=== PATIENT | male | born 1940 | race Caucasian/White ===

== ENCOUNTER 2016-03-31 08:00 | Outpatient (CLI) | payer MEDICARE, OTHER | END 2016-03-31 08:01 | disposition home or self-care (01) | DX: E78.2 Mixed hyperlipidemia (principal); Z79.899 Other long term (current) drug therapy; I10 Essential (primary) hypertension ==

== ENCOUNTER 2016-11-25 08:51 | Outpatient (CLI) | payer MEDICARE, OTHER ==
[2016-11-25 18:28] LABS: BASOPHILS % (AUTO) 0.5 %; EOSINOPHILS # (AUTO) 0.4 10^3/uL (0.0-0.7); EOSINOPHILS % (AUTO) 5.4 %; HCT - HEMATOCRIT 43.6 % (42.0-52.0); HGB - HEMOGLOBIN 14.5 g/dL (14.0-18.0); IMMATURE RETIC FRACTION 0.35; LYMPHOCYTES # (AUTO) 2.4 10^3/uL (1.5-3.5); LYMPHOCYTES % (AUTO) 29.8 %; MEAN CORPUSCULAR HEMOGLOBIN 34.8 pg (27.0-31.0); MEAN CORPUSCULAR HGB CONC 33.4 g/dL (32.0-36.0); MEAN CORPUSCULAR VOLUME 104.1 fL (80.0-94.0); MEAN PLATELET VOLUME 9.5 fL (7.4-11.4); MONOCYTES # (AUTO) 1.1 10^3/uL (0.0-1.0); MONOCYTES % (AUTO) 13.4 %; NEUTROPHILS # (AUTO) 4.1 10^3/uL (1.5-6.6); NEUTROPHILS % (AUTO) 50.9 %; NUCLEATED RED BLOOD CELLS AUTO 0.3 /100WBC; RED BLOOD COUNT 4.18 10^6/uL (4.70-6.10); RED CELL DISTRIBUTION WIDTH 15.1 % (12.0-15.0)
[2016-11-25 18:41] LABS: FERRITIN 199.9 ng/mL (23.9-336.2)
== END 2016-11-25 08:52 | disposition home or self-care (01) ==
LOC: LAB.F 08:51
PROVIDERS: ATTEND Internal Medicine
DX: D64.9 Anemia, unspecified (principal)
CPT/HCPCS: 36415; 82607; 82728; 83010; 85025; 85044; 86880

== ENCOUNTER 2017-06-19 17:17 | Outpatient (CLI) | payer MEDICARE, OTHER ==
[2017-06-19 17:35] LABS: BASOPHILS # (AUTO) 0.1 10^3/uL (0.0-0.1); BASOPHILS % (AUTO) 0.6 %; EOSINOPHILS # (AUTO) 0.3 10^3/uL (0.0-0.7); EOSINOPHILS % (AUTO) 3.3 %; HGB - HEMOGLOBIN 13.1 g/dL (14.0-18.0); LYMPHOCYTES # (AUTO) 1.6 10^3/uL (1.5-3.5); LYMPHOCYTES % (AUTO) 16.4 %; MEAN CORPUSCULAR HEMOGLOBIN 34.3 pg (27.0-31.0); MEAN CORPUSCULAR HGB CONC 33.3 g/dL (32.0-36.0); MEAN PLATELET VOLUME 8.8 fL (7.4-11.4); MONOCYTES # (AUTO) 1.8 10^3/uL (0.0-1.0); MONOCYTES % (AUTO) 18.1 %; NEUTROPHILS # (AUTO) 6.2 10^3/uL (1.5-6.6); NEUTROPHILS % (AUTO) 61.6 %; PLT - PLATELET COUNT 196 10^3/uL (130-450); RED BLOOD COUNT 3.83 10^6/uL (4.70-6.10); RED CELL DISTRIBUTION WIDTH 15.2 % (12.0-15.0); WHITE BLOOD COUNT 10.1 x10^3/uL (4.8-10.8)
[2017-06-19 17:52] LABS: ALBUMIN/GLOBULIN RATIO 1.1 (1.0-2.2); BILIRUBIN,TOTAL 0.3 mg/dL (0.2-1.0); CALCIUM 9.1 mg/dL (8.5-10.3); CREATININE 1.2 mg/dL (0.6-1.2); CRP - C-REACTIVE PROTEIN 4.3 mg/dL (0-1.0); TOTAL PROTEIN 7.8 g/dL (6.7-8.2)
[2017-06-19] MEDS ORDERED: IOPAMIDOL-300 100 ML VIAL ONE (17:52)
[2017-06-19] MEDS ORDERED: IOPAMIDOL-300 100 ML VIAL IVP ONE (19:54)
--- NOTE | 2017-06-19 20:29 | CT Report ---
EXAM: CT ABDOMEN AND PELVIS WITHOUT AND WITH CONTRAST (CT IVP) EXAM DATE: 06/19/2017 06:57 PM. CLINICAL HISTORY: Flank pain and anemia. History of bladder cancer COMPARISONS: None available at time of dictation. TECHNIQUE: Routine helical imaging was performed through the kidneys, ureters and bladder in the prec ontrast, postcontrast and delayed phase. IV Contrast: 100 cc Isovue-300 IV. Reconstructions: Coronal and sagittal. In accordance with CT protocol optimization, one or more of the following dose reduction techniques w ere utilized for this exam: automated exposure control, adjustment of mA and/or KV based on patient s ize, or use of iterative reconstructive technique. FINDINGS: Lung Bases: There is moderately advanced reticulation, groundglass opacity and traction bronchiectasi s consistent with pulmonary fibrosis. Right Kidney/Ureter: There are small right parapelvic renal cysts. The proximal and mid right ureter is well opacified with contrast in the excretory phase no filling defect or mass. No obstruction. Left Kidney/Ureter: There is wocj-xt-[id number] hydronephrosis of the left kidney with hydroureter. The left ureter is dilated down to the level of the urinary bladder. No left renal mass. No renal calcul us. On [address] of the bladder, the distal left ureter is dilated and contrast-omar led, however that very distal left ureter is unopacified with contrast and has a somewhat rounded sha pe which is best demonstrated on the coronal and sagittal reconstructions series 12 image 34. The omar ling defect in the distal left ureter measures 21 x 11 x 11 mm and is noncalcified. Prior to contrast the density is 27 Hounsfield units and after contrast density average is 34 Hounsfield units, not de finitely enhancing. Other Solid Organs: The liver, spleen, pancreas, gallbladder, and adrenal glands are unremarkable.The gallbladder is contracted. Peritoneal Cavity/Bowel: The appendix appears normal. The bowel is normal in caliber. There are a mod erate number of scattered colonic diverticula. Pelvic Organs: There is a small fat-containing left inguinal hernia. Prostate measures 3.9 x 5.9 x 4. 9 cm. Vasculature: There is moderately advanced diffuse atherosclerotic vascular calcification. There is a 4.1 cm distal abdominal aortic aneurysm tapering above the bifurcation. Bones: Normal. Other: None. IMPRESSION: 1. Distal left ureteral ovoid filling defect causing distal left ureteral obstruction. Measuring 21 x 11 x 11 mm and differential would include clot or a hypoenhancing mass. 2. Xrlm-va-kdrifmdh left hydronephrosis. 3. 4.1 cm to the lung abdominal aortic aneurysm. 4. Chronic bibasilar pulmonary fibrosis. RADIA The call report notification system was initiated by Dr. Apolinar Yanes at 20:07 hrs on 8. The above findings were discussed with SUN Cortes by Dr. Apolinar Yanes at 20:27 hrs on 06/19/17. Referring Provider Line: [phone] SITE ID: [id number]
== END 2017-06-19 17:18 | disposition home or self-care (01) ==
LOC: LAB 17:17 → DI 17:18
PROVIDERS: ATTEND Physician Assistant Medical
DX: N13.1 Hydronephrosis with ureteral stricture, not elsewhere classified (principal); I71.4 Abdominal aortic aneurysm, without rupture; D64.9 Anemia, unspecified; Z85.51 Personal history of malignant neoplasm of bladder; R31.9 Hematuria, unspecified
CPT/HCPCS: 36415; 74178; 80053; 85025; 85651; 86140; 87086; Q9967

== ENCOUNTER 2017-07-12 07:08 | Outpatient (CLI) | payer MEDICARE, OTHER ==
[2017-07-12 11:56] LABS: BASOPHILS # (AUTO) 0.1 10^3/uL (0.0-0.1); BASOPHILS % (AUTO) 0.8 %; EOSINOPHILS # (AUTO) 0.7 10^3/uL (0.0-0.7); EOSINOPHILS % (AUTO) 7.5 %; LYMPHOCYTES # (AUTO) 2.5 10^3/uL (1.5-3.5); LYMPHOCYTES % (AUTO) 28.3 %; MEAN CORPUSCULAR HEMOGLOBIN 34.2 pg (27.0-31.0); MEAN CORPUSCULAR HGB CONC 33.3 g/dL (32.0-36.0); MEAN CORPUSCULAR VOLUME 102.7 fL (80.0-94.0); MEAN PLATELET VOLUME 9.6 fL (7.4-11.4); MONOCYTES # (AUTO) 1.2 10^3/uL (0.0-1.0); MONOCYTES % (AUTO) 13.5 %; NEUTROPHILS # (AUTO) 4.4 10^3/uL (1.5-6.6); NEUTROPHILS % (AUTO) 49.9 %; PLT - PLATELET COUNT 227 10^3/uL (130-450); RED BLOOD COUNT 3.81 10^6/uL (4.70-6.10); RED CELL DISTRIBUTION WIDTH 14.5 % (12.0-15.0); WHITE BLOOD COUNT 8.9 x10^3/uL (4.8-10.8)
[2017-07-12 12:14] LABS: ALBUMIN/GLOBULIN RATIO 1.3 (1.0-2.2); ALKALINE PHOSPHATASE 58 IU/L (42-121); ALT ALANINE AMINOTRANSFERASE 19 IU/L (10-60); AST ASPARTATE AMINOTRANSFERASE 20 IU/L (10-42); BILIRUBIN,TOTAL 0.8 mg/dL (0.2-1.0); BUN - BLOOD UREA NITROGEN 25 mg/dL (6-20); CALCIUM 9.3 mg/dL (8.5-10.3); CARBON DIOXIDE - CO2 29 mmol/L (21-32); CHLORIDE 102 mmol/L (101-111); CHOL/HDL RATIO 2.5 (<5.0); CHOLESTEROL 116 mg/dL; GFR - MDRD 73 (>89); GLUCOSE 98 mg/dL (70-100); HDL CHOLESTEROL 47 mg/dL; SODIUM 137 mmol/L (135-145); TOTAL PROTEIN 7.2 g/dL (6.7-8.2)
[2017-07-12 12:37] LABS: LDL CHOLESTEROL,DIRECT 54 mg/dL; LDLD/HDL RATIO 1.1 (<3.6)
== END 2017-07-12 07:09 | disposition home or self-care (01) ==
LOC: LAB.F 07:08
PROVIDERS: ATTEND Internal Medicine
DX: E78.5 Hyperlipidemia, unspecified (principal); Z79.899 Other long term (current) drug therapy; Z12.5 Encounter for screening for malignant neoplasm of prostate; I10 Essential (primary) hypertension
CPT/HCPCS: 36415; 80053; 80061; 83721; 85025; G0103; 84153

== ENCOUNTER 2017-08-31 12:00 | Outpatient (CLI) | payer MEDICARE, OTHER ==
[2017-08-31 12:35] LABS: BILIRUBIN,URINE NEGATIVE (NEGATIVE); GLUCOSE, URINE (UA) NEGATIVE (NEGATIVE); KETONES,URINE (UA) NEGATIVE (NEGATIVE); LEUKOCYTE ESTERASE, URINE SMALL (NEGATIVE); NITRITE,URINE POSITIVE (NEGATIVE); OCCULT BLOOD,URINE MODERATE (NEGATIVE); PROTEIN,URINE TRACE mg/dL (NEGATIVE); UROBILINOGEN,URINE 0.2 (NORMAL) E.U./dL (NORMAL)
[2017-08-31 12:37] LABS: CLARITY,URINE CLOUDY (CLEAR)
[2017-08-31 12:41] LABS: BACTERIA,URINE Many /HPF (None Seen); RBC,URINE TNTC /HPF (0-5); SQUAMOUS EPITHELIAL CELL,UR NONE SEEN (<= Few)
== END 2017-08-31 12:01 | disposition home or self-care (01) ==
LOC: LAB 12:00
PROVIDERS: ATTEND Student in an Organized Health Care Education/Training Program
DX: R30.0 Dysuria (principal)
CPT/HCPCS: 81001; 81003; 87077; 87086; 87181

== ENCOUNTER 2017-09-03 23:06 | Emergency (ER) | payer MEDICARE, OTHER ==
[2017-09-03] MEDS ORDERED: SODIUM CHLORIDE 0.9% 1,000 ML IV ONE (23:26)
[2017-09-03] MEDS ORDERED: ONDANSETRON 4 MG/2 ML VIAL IVP STA (23:26)
[2017-09-03 23:41] LABS: BASOPHILS # (AUTO) 0.1 10^3/uL (0.0-0.1); BASOPHILS % (AUTO) 0.6 %; EOSINOPHILS # (AUTO) 0.1 10^3/uL (0.0-0.7); EOSINOPHILS % (AUTO) 0.8 %; HGB - HEMOGLOBIN 12.2 g/dL (14.0-18.0); LYMPHOCYTES # (AUTO) 1.3 10^3/uL (1.5-3.5); LYMPHOCYTES % (AUTO) 12.7 %; MEAN CORPUSCULAR HEMOGLOBIN 35.3 pg (27.0-31.0); MEAN CORPUSCULAR HGB CONC 34.2 g/dL (32.0-36.0); MEAN CORPUSCULAR VOLUME 103.2 fL (80.0-94.0); MONOCYTES # (AUTO) 1.2 10^3/uL (0.0-1.0); MONOCYTES % (AUTO) 12.2 %; NEUTROPHILS # (AUTO) 7.5 10^3/uL (1.5-6.6); NEUTROPHILS % (AUTO) 73.7 %; PLT - PLATELET COUNT 499 10^3/uL (130-450); RED BLOOD COUNT 3.45 10^6/uL (4.70-6.10); RED CELL DISTRIBUTION WIDTH 14.7 % (12.0-15.0); WHITE BLOOD COUNT 10.1 x10^3/uL (4.8-10.8)
[2017-09-03] MEDS ORDERED: MORPHINE 10 MG/ML VIAL IVP STA (23:48)
[2017-09-03 23:53] LABS: BILIRUBIN,URINE NEGATIVE (NEGATIVE); GLUCOSE, URINE (UA) 100 mg/dL (NEGATIVE); KETONES,URINE (UA) 15 mg/dL (NEGATIVE); LEUKOCYTE ESTERASE, URINE NEGATIVE (NEGATIVE); NITRITE,URINE POSITIVE (NEGATIVE); OCCULT BLOOD,URINE MODERATE (NEGATIVE); PROTEIN,URINE 100 mg/dL (NEGATIVE); UROBILINOGEN,URINE 4 E.U./dL (NORMAL)
[2017-09-03 23:53] LABS: ALBUMIN 3.6 g/dL (3.2-5.5); ALBUMIN/GLOBULIN RATIO 0.8 (1.0-2.2); BILIRUBIN,TOTAL 0.5 mg/dL (0.2-1.0); CALCIUM 9.3 mg/dL (8.5-10.3); CREATININE 1.6 mg/dL (0.6-1.2); TOTAL PROTEIN 7.9 g/dL (6.7-8.2)
[2017-09-03 23:54] LABS: CLARITY,URINE SL. CLOUDY (CLEAR)
[2017-09-04 00:02] LABS: AMORPHOUS SEDIMENT,UR Moderate /LPF; BACTERIA,URINE Few /HPF (None Seen); RBC,URINE 0-5 /HPF (0-5); SQUAMOUS EPITHELIAL CELL,UR RARE Squamous (<= Few)
[2017-09-04 00:11] LABS: PLATELET ESTIMATE, MANUAL INCREASED (>450,000) (NORMAL); PLATELET MORPHOLOGY NORMAL APPEARANCE (NORMAL); RBC MORPHOLOGY (MULTIPLE) NORMAL APPEARANCE (NORMAL)
[2017-09-04] MEDS ORDERED: HYDROmorphone 1 MG/ML CARPUJECT IVP STA (01:00)
--- NOTE | 2017-09-04 01:23 | CT Report ---
Procedure Date: 09/04/2017 Accession Number: [id number] / [id number] Procedure: CT - Abdomen/Pelvis W/O CPT Code: FULL RESULT: EXAM: CT ABDOMEN AND PELVIS (CT KUB) EXAM DATE: 09/04/2017 12:51 AM. CLINICAL HISTORY: Abdominal pain. COMPARISONS: CT IVP 06/19/2017. TECHNIQUE: Routine axial helical CT imaging was performed through the abdomen and pelvis without IV contrast. Reconstructions: Coronal and sagittal. In accordance with CT protocol optimization, one or more of the following dose reduction techniques were utilized for this exam: automated exposure control, adjustment of mA and/or KV based on patient size, or use of iterative reconstructive technique. FINDINGS: Lung Bases: Possible emphysema. Bibasilar opacities are slightly decreased compared with the prior exam. Small hiatal hernia. Right Kidney/Ureter: Small peripelvic cysts. No stones are seen in the kidney or ureter. No obstructive uropathy seen. Left Kidney/Ureter: Double pigtail stent extending from the collecting system to the urinary bladder. No stones are identified. There is mild hydronephrosis and proximal hydroureter with mild perinephric stranding. A large lobulated cystic mass is seen centered in the left retroperitoneum, measuring 13.5 x 11.1 x 22.2 cm. This compresses and displaces the urinary bladder into the right hemipelvis. There is also compression and displacement of the left ureter. Other Solid Organs: No focal lesions are seen in the liver or spleen on this noncontrast examination. Mild to moderate pancreatic atrophy again seen. Adrenals are unremarkable. Gallbladder/Bile Ducts: Unremarkable. Peritoneal Cavity: Colonic diverticula are seen. No diverticulitis is noted. No bowel obstruction seen. No free air or free fluid. No lymphadenopathy. Moderate stool in the right hemicolon. Appendix appears normal. See above regarding large cystic lesion centered in the left retroperitoneum. Pelvic Organs: As noted above, urinary bladder is compressed and displaced into the right hemipelvis. Vasculature: Moderate to severe atherosclerosis. Infrarenal abdominal aortic aneurysm measuring 4.1 x 4.2 cm. Other: Osteopenia. Degenerative changes in the spine with mild grade 1 degenerative spondylolisthesis at L4-L5. Spinal stenosis. Mild scoliosis. Degenerative joint disease in the hips. IMPRESSION: 1. Double pigtail left ureteral stent extending from the collecting system to the urinary bladder. No stones are seen but there is mild left hydronephrosis and proximal hydroureter with perinephric stranding, which may indicate stent occlusion. 2. Large lobulated cystic structure centered in the left retroperitoneum, 13.5 x 11.1 x 22.2 cm. This compresses and displaces the left ureter and the urinary bladder. It could represent a large lymphocele. Urinoma would be in the differential diagnosis. 3. Bibasilar pulmonary opacities are slightly decreased compared with the prior exam. 4. Stable infrarenal abdominal aortic aneurysm. 5. Colonic diverticula. No definite diverticulitis. RADIA
--- NOTE | 2017-09-04 02:15 | ED Physician Documentation ---
History of Present Illness - Stated complaint Stated Complaint: VOM/ABD PX, POST SURG - Chief complaint Chief Complaint: Abd Pain - History obtained from History obtained from: Patient, Family - Additonal information Additional information: 77-year-old male presents the emergency department with increasing abdominal pain, flank pain and nausea and vomiting which has progressively worsened over the past several days. The patient recently had surgery at the [facility], his surgery was of a urologic nature. The patient currently has a renal stent, and the [place] catheter was removed. The patient reports decreased amounts of bowel movements. Symptoms are described as moderate. The patient denies fevers or chills or chest pain or shortness of breath. No relieving factors.. No other associated symptoms Review of Systems Constitutional: reports: Fatigue. denies: Fever Eyes: denies: Discharge Ears: denies: Ear pain Nose: denies: Congestion Throat: denies: Sore throat Cardiac: denies: Chest pain / pressure Respiratory: denies: Dyspnea, Cough GI: reports: Abdominal Pain, Nausea, Vomiting, Constipation : denies: Dysuria Skin: denies: Lesions Musculoskeletal: denies: Extremity pain Neurologic: denies: Altered mental status PD PAST MEDICAL HISTORY - Past Medical History Cardiovascular: Hypertension, High cholesterol Respiratory: None Endocrine/Autoimmune: None GI: None : Benign prostate hypertrophy, Frequency, Other HEENT: None Psych: None Musculoskeletal: Osteoarthritis Derm: None - Past Surgical History Past Surgical History: Yes General: Colonoscopy - Present Medications Home Medications: Ambulatory Orders Medication Instructions Recorded Confirmed Lisinopril 10 mg PO DAILY 09/02/14 11/30/15 Simvastatin 20 mg PO DAILY 09/02/14 11/30/15 Aspirin [Adult Low Dose Aspirin EC] 1 tab PO DAILY 11/30/15 11/30/15 Ciprofloxacin HCl [Cipro] 500 mg PO 09/03/17 oxyCODONE [Roxicodone] 5 mg PO ONCE 09/03/17 - Allergies Allergies/Adverse Reactions: Allergies Allergy/AdvReac Type Severity Reaction Status Date / Time No Known Drug Allergies Allergy Verified 09/03/17 23:30 - Social History Does the pt smoke?: No Smoking Status: Never smoker Does the pt drink ETOH?: Yes - Immunizations Immunizations are current?: Yes PD ED PE NORMAL - General General: Alert and oriented X 3, No acute distress - HEENT HEENT: Atraumatic, PERRL, EOMI, Ears normal - Neck Neck: Supple, no meningeal sign - Cardiac Cardiac: RRR, Strong equal pulses - Respiratory Respiratory: No respiratory distress, Clear bilaterally - Abdomen Abdomen: Normal bowel sounds, Soft - Derm Derm: Normal color - Extremities Extremities: No deformity - Neuro Neuro: Alert and oriented X 3, Normal speech PD ED PE EXPANDED - Abdomen Abdomen: Tender to palpation (Diffuse) Results - Vitals Vitals: Vital Signs - 24 hr 09/03/17 09/04/17 09/04/17 23:25 00:00 02:00 Temperature 36.9 C Heart Rate 61 80 64 Respiratory 16 16 16 Rate Blood Pressure 151/71 H 155/96 H 123/49 L O2 Saturation 98 99 93 Oxygen O2 Source Room air - Labs Labs: Laboratory Tests 09/03/17 09/03/17 09/03/17 23:28 23:28 23:30 WBC 10.1 RBC 3.45 L Hgb 12.2 L Hct 35.6 L MCV 103.2 H MCH 35.3 H MCHC 34.2 RDW 14.7 Plt Count 499 H MPV 8.0 Neut # (Auto) 7.5 H Lymph # (Auto) 1.3 L Barry # (Auto) 1.2 H Eos # (Auto) 0.1 Baso # (Auto) 0.1 Absolute Nucleated RBC 0.00 Band Neuts % (Manual) Not Reportable Abnorm Lymph % (Manual) Not Reportable Nucleated RBC % 0.0 Neutrophils # (Manual) Not Reportable Lymphocytes # (Manual) Not Reportable Monocytes # (Manual) Not Reportable Eosinophils # (Manual) Not Reportable Basophils # (Manual) Not Reportable Platelet Estimate INCREASED (>450,000) Platelet Morphology NORMAL APPEARANCE RBC Morph Micro Appear NORMAL APPEARANCE Sodium 125 L Potassium 3.8 Chloride 91 L Carbon Dioxide 24 Anion Gap 10.0 BUN 20 Creatinine 1.6 H Estimated GFR (MDRD) 42 L Glucose 136 H Calcium 9.3 Total Bilirubin 0.5 AST 21 ALT 18 Alkaline Phosphatase 53 Total Protein 7.9 Albumin 3.6 Globulin 4.3 H Albumin/Globulin Ratio 0.8 L Lipase 16 L Urine Color YELLOW Urine Clarity SL. CLOUDY Urine pH 7.0 Ur Specific [place] 1.020 Urine Protein 100 H Urine Glucose (UA) 100 H Urine Ketones 15 H Urine Occult Blood MODERATE H Urine Nitrite POSITIVE H Urine Bilirubin NEGATIVE Urine Urobilinogen 4 H Ur Leukocyte Esterase NEGATIVE Urine RBC 0-5 Urine WBC 0-3 Ur Squamous Epith Cells RARE Squamous Amorphous Sediment Moderate Urine Bacteria Few Ur Microscopic Review INDICATED Urine Culture Comments INDICATED - Rads (name of study) CT abd/pelvis Radiology: Final report received (Impression: 1 double pigtail left ureteral stent extending from the collecting system to the urinary bladder. No stones are seen but there is a mild left hydronephrosis and proximal hydroureter with perinephric stranding. Which may indicate stent inclusion.) PD MEDICAL DECISION MAKING - ED course Complexity details: other (The case was discussed with the on-call urologist at the [facility] Dr. Khan. He was able to independently reviewed the CT scan and feels that this fluid collection will require drainage by interventional radiology. Since, our facility is unable to provide this service. Agrees to transfer the patient to his facility. Currently, he does not believe that the stent is collapsed. Unfortunately, there currently are no beds at the [facility]. The patient is a priority patient and there should be beds earlier this morning. Dr. Khan feels that the patient does not require an emergent drainage and can wait in our emergency department until a bed is available. The findings and plan were discussed with the patient and family who understand and agree to plan.) - Sepsis Event Vital Signs: Vital Signs - 24 hr 09/03/17 09/04/17 09/04/17 23:25 00:00 02:00 Temperature 36.9 C Heart Rate 61 80 64 Respiratory 16 16 16 Rate Blood Pressure 151/71 H 155/96 H 123/49 L O2 Saturation 98 99 93 Oxygen O2 Source Room air Departure - Departure Disposition: 02 Transfer Acute Care Hosp Clinical Impression: Intraabdominal fluid collection, Hyponatremia Abdominal pain Qualifiers: Abdominal location: generalized Qualified Code(s): R10.84 - Generalized abdominal pain Hydronephrosis Qualifiers: Hydronephrosis type: with renal calculous obstruction Qualified Code(s): N13.2 - Hydronephrosis with renal and ureteral calculous obstruction Acute renal failure (ARF) Qualifiers: Acute renal failure type: unspecified Qualified Code(s): N17.9 - Acute kidney failure, unspecified Condition: Good
[2017-09-04] MEDS: HYDROmorphone 1 MG/ML CARPUJECT IVP PRN ×3 (05:16→12:41)
[2017-09-04] MEDS ORDERED: ONDANSETRON 4 MG/2 ML VIAL IVP STA (09:25)
[2017-09-04 13:33] VITALS: BP 131/71
== END 2017-09-04 13:59 | disposition short-term general hospital (02) ==
LOC: ED 23:06
DX: N13.2 Hydronephrosis with renal and ureteral calculous obstruction (principal); N17.9 Acute kidney failure, unspecified; E87.1 Hypo-osmolality and hyponatremia; R18.8 Other ascites; R10.84 Generalized abdominal pain; I10 Essential (primary) hypertension; E78.00 Pure hypercholesterolemia, unspecified
CPT/HCPCS: 36415; 74176; 80053; 81001; 81003; 83690; 85025; 87086; 96361; 96374; 96375; 96376; 99284; 99285

== ENCOUNTER 2017-09-04 13:58 | Outpatient (CLI) | payer MEDICARE, OTHER | END 2017-09-04 13:59 | disposition short-term general hospital (02) | LOC: EMS 13:58 | PROVIDERS: ATTEND Surgery | DX: R10.9 Unspecified abdominal pain (principal); R11.0 Nausea | CPT/HCPCS: A0425; A0426 ==

== ENCOUNTER 2018-03-16 10:50 | Outpatient (CLI) | payer MEDICARE, OTHER ==
--- NOTE | 2018-03-18 00:34 | XRAY Report ---
Reason: HIP PAIN,LEFT Procedure Date: 03/16/2018 Accession Number: [id number] / [id number] Procedure: XR - Hip w/Pelvis 2-3V LT CPT Code: FULL RESULT: EXAM: LEFT HIP RADIOGRAPHY EXAM DATE: 03/16/2018 11:06 AM. CLINICAL HISTORY: HIP PAIN,LEFT. COMPARISON: None. TECHNIQUE: 2 views. FINDINGS: Bones: Normal. No fractures or bone lesion. Joints: Moderate to severe left hip degenerative joint disease with sclerosis, osteophytes and joint space narrowing. Mild right sacroiliac and right hip degenerative joint disease. No subluxation. Soft Tissues: Unremarkable. IMPRESSION: Moderate to severe left hip degenerative joint disease. RADIA
== END 2018-03-16 10:51 | disposition home or self-care (01) ==
LOC: DI 10:50
PROVIDERS: ATTEND Internal Medicine
DX: M16.12 Unilateral primary osteoarthritis, left hip (principal)

== ENCOUNTER 2018-04-23 07:43 | Day surgery (SDC) | payer MEDICARE, OTHER ==
[~2018-04-23 07:43] MED LIST: ceFAZolin 2 GM/50 ML 2 GM/50 ML BAG IV ONE
[2018-04-23] MEDS ORDERED: LACTATED RINGERS 1,000 ML IV ONE (08:08)
--- NOTE | 2018-04-23 08:10 | ANESTHESIA ---
Pre-Anesthesia VS, & Labs - Diagnosis left inguinal hernia - Procedure left inguinal hernia repair Vital Signs: Temp Pulse Resp BP Pulse Ox 37.2 C 54 L 16 138/61 H 99 04/23/18 07:48 04/23/18 07:48 04/23/18 07:48 04/23/18 07:48 04/23/18 07:48 Height 6 ft Weight (kg) 81.4 kg Body Mass Index 23.7 - NPO >8 hours - Lab Results Lab results reviewed: Yes Home Medications and Allergies Home Medications: Ambulatory Orders Tamsulosin HCl [Flomax] 0.4 mg PO DAILY 04/05/18 Lisinopril 20 mg PO DAILY 09/02/14 Simvastatin 20 mg PO QPM 09/02/14 Aspirin [Adult Low Dose Aspirin EC] 1 tab PO DAILY 11/30/15 Tamsulosin HCl [Flomax] 0.4 mg PO DAILY 04/05/18 Allergies/Adverse Reactions: Allergies Allergy/AdvReac Type Severity Reaction Status Date / Time No Known Drug Allergies Allergy Verified 09/03/17 23:30 Anes History & Medical History - Anesthetic History Anesthesia Complications: reports: No previous complications Family history of Anesthesia Complications: Denies Family history of Malignant Hyperthermia: Denies - Medical History Cardiovascular: reports: Hypertension, High cholesterol Pulmonary: reports: None Gastrointestinal: reports: None Urinary: reports: Benign prostate hypertrophy, Frequency, Other Musculoskeletal: reports: Osteoarthritis Endocrine/Autoimmune: reports: None Skin: reports: None Smoking Status: Never smoker - Surgical History General: Colonoscopy Urologic: Bladder surgery Exam General: Alert, Oriented x3, Cooperative, No acute distress Dental: Other (implants,caps) Mouth Openin Fingerbreadth Neck Mobility: Normal Mallampati classification: II Thyromental Distance: greater than 6 cm Respiratory: Lungs clear, Normal breath sounds, No respiratory distress, No accessory muscle use Cardiovascular: Regular rate, Normal S1, Normal S2, No murmurs Mental/Cognitive Status: Alert/Oriented X3, Normal for patient Plan Anesthesia Type: General Consent for Procedure(s) Verified and Reviewed: Yes Code Status: Attempt Resuscitation ASA classification: 2-Mild systemic disease Is this case an emergency?: No
[2018-04-23] MEDS ORDERED: BUPIVACAINE 0.5%-EPI 1:200000 PF 30 ML VIAL SUBQ ONE ×2 (09:12)
[2018-04-23] MEDS ORDERED: ceFAZolin 1 GM VIAL IR ONE (09:13)
[2018-04-23] MEDS ORDERED: LIDOCAINE 1% 50 ML MDV SUBQ ONE ×2 (09:13)
[2018-04-23] MEDS ORDERED: ACETAMINOPHEN 325 MG TABLET PO PRN (10:12)
[2018-04-23] MEDS ORDERED: ONDANSETRON 4 MG/2 ML VIAL IVP PRN (10:12)
[2018-04-23] MEDS ORDERED: IBUPROFEN 600 MG TABLET PO PRN (10:12)
[2018-04-23] MEDS ORDERED: oxyCODONE 5 MG TABLET PO PRN (10:12)
[2018-04-23] MEDS ORDERED: fentaNYL 100 MCG/2 ML VIAL IVP ONE (10:15)
[2018-04-23] MEDS ORDERED: PROPOFOL 200 MG/20 ML VIAL IVP ONE (10:15)
[2018-04-23] MEDS ORDERED: MIDAZOLAM 2 MG/2 ML VIAL IVP ONE (10:15)
[2018-04-23 11:06] VITALS: BP 136/74
--- NOTE | 2018-04-23 11:12 | OPERATIVE REPORT ---
DATE OF SERVICE: 04/23/2018 Physician: Patrick Nuñez MD PREOPERATIVE DIAGNOSIS: Symptomatic left inguinal hernia. POSTOPERATIVE DIAGNOSIS: Incarcerated left inguinal hernia. PROCEDURE PERFORMED: Open repair of same with polypropylene mesh. ANESTHESIA: Local plus monitored anesthesia care by Erlinda Bernstein CRNA. SURGEON: Patrick Nuñez MD ESTIMATED BLOOD LOSS: 10 mL. COMPLICATIONS: None. FINDINGS: Omentum was incarcerated within the indirect left inguinal hernia sac, the distal portion, which appeared to have become infarcted. There was no evidence of direct or femoral hernia. INDICATIONS: Patient is a 78-year-old gentleman with a history of severe left groin pain approximately 2 months ago while traveling in [place]. Evaluation revealed an infarcting, fat-containing left inguinal hernia. He was treated conservatively. He has had a persistent lump in his left groin and persistent discomfort and would now like to have his hernia repaired. TECHNIQUE: After informed consent, patient was taken to the operating room where he was sedated and monitored. Preoperative preparation included application of sequential calf compression boots, administration of 2 grams cefazolin intravenously within an hour of the incision. His left groin had been clipped and was prepped with iodoform solution, following which a left groin block was instituted using a 50:50 combination of 1% lidocaine plain and 0.5% Marcaine with epinephrine. A total of 30 mL of the mixture was used. Left groin was re-prepared with ChloraPrep solution and draped in the usual sterile fashion. A transverse incision was made in the skin lines of the left groin beginning above the left pubic tubercle and extending laterally for a distance of 5 cm. Hemostasis achieved with electrocautery and 2-0 Vicryl ties. Incision was carried down through subcutaneous tissues until the external oblique aponeurosis was identified. It was incised along the lines of its fibers in such a manner as to expose the internal ring and open the external ring. The spermatic cord was mobilized and encircled with a Morse drain. The ilioinguinal nerve was identified and was divided to avoid entrapment, injury, and neuroma. The spermatic cord was carefully dissected identifying the indirect hernia sac. It was seen to be scarred and chronically inflamed, and dissection of surrounding cord structures was difficult. The hernia sac was then opened and transected. The contents were identified. The distal infarcted portion was excised and discarded. The proximal omentum, which had been ligated with 2-0 Vicryl, was reduced into the peritoneal cavity. The hernia sac was then dissected proximally and was closed with 3-0 silk suture ligatures at the level of the internal ring. The distal hernia sac was marsupialized and left in situ. After hemostasis was ensured, the wound was irrigated with antibiotic solution containing 1 gram of cefazolin per liter, following which a Covidien expanded polypropylene precut slotted inguinal hernia patch, which had been soaked in antibiotic solution, was brought onto the field, placed over the inguinal floor, and secured in place with continuous 3-0 Prolene sutures, securing it to the shelving edge of Poupart ligament inferiorly, to the internal oblique aponeurosis superolaterally, to the lateral border rectus sheath medially. The patch was tightened around the internal ring with care being taken to avoid excessive tightening. After hemostasis was assured, the wound was then irrigated with antibiotic solution, following which wound closure was accomplished in layers using continuous 2-0 Vicryl reapproximating the external oblique aponeurosis overlying the cord, followed by 3-0 Vicryl for Sudheer's fascia, followed by 4-0 Monocryl subcuticular skin closure and Dermabond. The procedure was terminated and patient transferred out of the operating room in satisfactory condition. Sponge and needle counts were correct x2. No drains were used. cc: Delmar Hurtado MD TD: 04/23/2018 10:30 [facility]uel
[2018-04-23] MEDS ORDERED: ACETAMINOPHEN 1,000 MG/100 ML 100 ML IV ONE (12:15)
== END 2018-04-23 11:20 | disposition home or self-care (01) ==
LOC: SDS 07:43
PROVIDERS: ATTEND Internal Medicine Gastroenterology
PROC: 0YU60JZ Supplement Left Inguinal Region with Synthetic Substitute, Open Approach (ICD-10-PCS; principal; 2018-04-23 08:45)
DX: K40.30 Unilateral inguinal hernia, with obstruction, without gangrene, not specified as recurrent (principal); I10 Essential (primary) hypertension; F17.290 Nicotine dependence, other tobacco product, uncomplicated; N40.0 Benign prostatic hyperplasia without lower urinary tract symptoms; I71.9 Aortic aneurysm of unspecified site, without rupture
CPT/HCPCS: 49507; J0690; J7120

== ENCOUNTER 2018-10-16 10:08 | Outpatient (CLI) | payer MEDICARE, OTHER ==
--- NOTE | 2018-10-17 16:03 | XRAY Report ---
Reason: HIP JOINT PAIN, LEFT Procedure Date: 10/16/2018 Accession Number: [id number] / [id number] Procedure: XR - Hip w/Pelvis 2-3V LT CPT Code: FULL RESULT: EXAM: LEFT HIP RADIOGRAPHY EXAM DATE: 10/16/2018 10:44 AM. CLINICAL HISTORY: Left hip joint pain. COMPARISON: HIP W/PELVIS 2-3V LT 03/16/2018 10:56 AM. TECHNIQUE: 3 views. FINDINGS: Bones: Normal. No fractures or bone lesion. Joints: Significant asymmetric left hip joint space narrowing with near qxpr-qf-hemy articulation and probable early subchondral cyst formation of the femoral head. Moderate marginal osteophyte of the femoral head and acetabulum as well as subchondral sclerosis. Mild degenerative changes of the right SI joint. Degenerative lateral osteophyte at L3-L4. Soft Tissues: Normal. No soft tissue swelling. IMPRESSION: Asymmetric severe arthritis left hip. RADIA
== END 2018-10-16 10:09 | disposition home or self-care (01) ==
LOC: DI 10:08
PROVIDERS: ATTEND Family Medicine
DX: M16.12 Unilateral primary osteoarthritis, left hip (principal)

== ENCOUNTER 2020-04-03 07:40 | Outpatient (CLI) | payer MEDICARE, OTHER ==
[2020-04-03 15:57] LABS: BASOPHILS % (AUTO) 0.8 %; EOSINOPHILS % (AUTO) 3.9 %; HGB - HEMOGLOBIN 12.7 g/dL (14.0-18.0); MEAN CORPUSCULAR HEMOGLOBIN 34.9 pg (27.0-31.0); MEAN CORPUSCULAR HGB CONC 33.3 g/dL (32.0-36.0); MEAN CORPUSCULAR VOLUME 104.7 fL (80.0-94.0); MEAN PLATELET VOLUME 11.5 fL (7.4-11.4); MONOCYTES % (AUTO) 13.8 %; PLT - PLATELET COUNT 250 10^3/uL (130-450); RED BLOOD COUNT 3.64 10^6/uL (4.70-6.10); RED CELL DISTRIBUTION WIDTH 14.9 % (12.0-15.0)
[2020-04-03 16:02] LABS: ABNORMAL LYMPHS % (MANUAL) 0 %
[2020-04-03 16:15] LABS: ALBUMIN 3.8 g/dL (3.2-5.5); ALBUMIN/GLOBULIN RATIO 1.1 (1.0-2.2); ALKALINE PHOSPHATASE 53 IU/L (42-121); ALT ALANINE AMINOTRANSFERASE 13 IU/L (10-60); AST ASPARTATE AMINOTRANSFERASE 17 IU/L (10-42); BILIRUBIN,TOTAL 0.8 mg/dL (0.2-1.0); BUN - BLOOD UREA NITROGEN 30 mg/dL (6-20); CALCIUM 9.4 mg/dL (8.5-10.3); CARBON DIOXIDE - CO2 24 mmol/L (21-32); CHLORIDE 101 mmol/L (101-111); CHOL/HDL RATIO 3.1 (<5.0); CHOLESTEROL 106 mg/dL; CREATININE 1.2 mg/dL (0.6-1.2); GLUCOSE 93 mg/dL (70-100); HDL CHOLESTEROL 34 mg/dL; LDL CHOLESTEROL,CALCULATED 58 mg/dL; LDL/HDL RATIO 1.7 (<3.6); TOTAL PROTEIN 7.4 g/dL (6.7-8.2); VLDL CHOLESTEROL 14 mg/dL
[2020-04-03 16:30] LABS: BAND NEUTROPHILS % (MANUAL) 4 %; EOSINOPHILS # (MANUAL) 0.4 10^3/uL (0-0.7); LYMPHOCYTES # (MANUAL) 2.3 10^3/uL (1.5-3.5); LYMPHOCYTES % (MANUAL) 9 %; MONOCYTES # (MANUAL) 1.1 10^3/uL (0.0-1.0); PLATELET ESTIMATE, MANUAL NORMAL (130-450,000) (NORMAL); PLATELET MORPHOLOGY 1+ GIANT PLATELETS (NORMAL); RBC MORPHOLOGY (MULTIPLE) 1+ MACROCYTOSIS (NORMAL)
[2020-04-03 16:31] LABS: DIFFERENTIAL COMMENT MANUAL DIFFERENTIAL
== END 2020-04-03 07:41 | disposition home or self-care (01) ==
LOC: LAB.S 07:40
PROVIDERS: ATTEND Internal Medicine
DX: I10 Essential (primary) hypertension (principal); E78.5 Hyperlipidemia, unspecified
CPT/HCPCS: 36415; 80053; 80061; 83721; 85025

== ENCOUNTER 2020-04-17 12:37 | Outpatient (CLI) | payer MEDICARE, OTHER | END 2020-04-17 12:38 | disposition home or self-care (01) | LOC: COV 12:37 | PROVIDERS: ATTEND Surgery | DX: Z01.812 Encounter for preprocedural laboratory examination (principal); K21.9 Gastro-esophageal reflux disease without esophagitis; Z86.010 Personal history of colon polyps; Z20.822 Contact with and (suspected) exposure to COVID-19 ==

== ENCOUNTER 2020-04-21 12:22 | Day surgery (SDC) | payer MEDICARE, OTHER ==
[2020-04-21] MEDS ORDERED: LACTATED RINGERS 1,000 ML IV ONE ×2 (12:56→16:03)
[2020-04-21] MEDS ORDERED: MIDAZOLAM 2 MG/2 ML VIAL ONE ×3 (14:43→15:44)
[2020-04-21] MEDS ORDERED: fentaNYL 250 MCG/5 ML VIAL ONE (14:43)
[2020-04-21] MEDS ORDERED: LIDO GARGLE 30 ML BOTTLE ONE (14:45)
[2020-04-21] MEDS ORDERED: LIDO GARGLE 30 ML BOTTLE PO ONE (14:59)
[2020-04-21 16:21] VITALS: BP 106/58
== END 2020-04-21 12:23 | disposition home or self-care (01) ==
LOC: SDS 12:22
PROVIDERS: ATTEND Surgery
PROC: 0DB78ZX Excision of Stomach, Pylorus, Via Natural or Artificial Opening Endoscopic, Diagnostic (ICD-10-PCS; principal; 2020-04-21 13:30)
PROC: 0DBK8ZZ Excision of Ascending Colon, Via Natural or Artificial Opening Endoscopic (ICD-10-PCS; 2020-04-21 13:30)
DX: Z12.11 Encounter for screening for malignant neoplasm of colon (principal); D12.2 Benign neoplasm of ascending colon; K57.30 Diverticulosis of large intestine without perforation or abscess without bleeding; K29.70 Gastritis, unspecified, without bleeding; K21.9 Gastro-esophageal reflux disease without esophagitis; K44.9 Diaphragmatic hernia without obstruction or gangrene; I10 Essential (primary) hypertension; E78.5 Hyperlipidemia, unspecified; Z85.51 Personal history of malignant neoplasm of bladder; F17.210 Nicotine dependence, cigarettes, uncomplicated; K63.89 Other specified diseases of intestine
CPT/HCPCS: 43239; 45385; A9270; J3010; J7120

== ENCOUNTER 2020-07-24 08:00 | Outpatient (CLI) | payer MEDICARE, OTHER ==
[2020-07-24 20:15] LABS: BILIRUBIN,URINE NEGATIVE (NEGATIVE); GLUCOSE, URINE (UA) NEGATIVE (NEGATIVE); KETONES,URINE (UA) NEGATIVE (NEGATIVE); LEUKOCYTE ESTERASE, URINE SMALL (NEGATIVE); NITRITE,URINE NEGATIVE (NEGATIVE); OCCULT BLOOD,URINE MODERATE (NEGATIVE); PROTEIN,URINE 30 mg/dL (NEGATIVE); UROBILINOGEN,URINE 0.2 (NORMAL) E.U./dL (NORMAL)
[2020-07-24 20:19] LABS: CLARITY,URINE CLEAR (CLEAR)
[2020-07-24 20:21] LABS: AMORPHOUS SEDIMENT,UR Rare /LPF; BACTERIA,URINE Rare /HPF (None Seen); MUCUS,URINE Few Strands; SQUAMOUS EPITHELIAL CELL,UR FEW Squamous (<= Few)
== END 2020-07-24 23:59 | disposition home or self-care (01) ==
LOC: LAB.S 08:00
PROVIDERS: ATTEND Emergency Medicine
DX: R39.89 Other symptoms and signs involving the genitourinary system (principal); N41.0 Acute prostatitis
CPT/HCPCS: 81001; 87086

== ENCOUNTER 2020-10-05 15:29 | Outpatient (CLI) | payer MEDICARE, OTHER ==
[2020-10-05 20:05] LABS: BASOPHILS # (AUTO) 0.1 10^3/uL (0.0-0.1); BASOPHILS % (AUTO) 0.8 %; EOSINOPHILS # (AUTO) 0.3 10^3/uL (0.0-0.7); EOSINOPHILS % (AUTO) 3.4 %; HCT - HEMATOCRIT 33.9 % (42.0-52.0); HGB - HEMOGLOBIN 11.3 g/dL (14.0-18.0); LYMPHOCYTES # (AUTO) 1.7 10^3/uL (1.5-3.5); LYMPHOCYTES % (AUTO) 17.4 %; MEAN CORPUSCULAR HEMOGLOBIN 35.3 pg (27.0-31.0); MEAN CORPUSCULAR HGB CONC 33.3 g/dL (32.0-36.0); MEAN CORPUSCULAR VOLUME 105.9 fL (80.0-94.0); MEAN PLATELET VOLUME 11.9 fL (7.4-11.4); MONOCYTES # (AUTO) 1.1 10^3/uL (0.0-1.0); MONOCYTES % (AUTO) 11.6 %; NEUTROPHILS # (AUTO) 6.3 10^3/uL (1.5-6.6); NEUTROPHILS % (AUTO) 66.1 %; PLT - PLATELET COUNT 249 10^3/uL (130-450); RED CELL DISTRIBUTION WIDTH 15.6 % (12.0-15.0); WHITE BLOOD COUNT 9.6 x10^3/uL (4.8-10.8)
[2020-10-05 20:19] LABS: ALBUMIN 3.9 g/dL (3.2-5.5); ALBUMIN/GLOBULIN RATIO 1.1 (1.0-2.2); BILIRUBIN,TOTAL 0.4 mg/dL (0.2-1.0); CALCIUM 8.9 mg/dL (8.5-10.3); CREATININE 1.3 mg/dL (0.6-1.2); POTASSIUM 4.3 mmol/L (3.5-5.0); TOTAL PROTEIN 7.4 g/dL (6.7-8.2)
== END 2020-10-05 15:30 | disposition home or self-care (01) ==
LOC: LAB.S 15:29
PROVIDERS: ATTEND Internal Medicine
DX: I10 Essential (primary) hypertension (principal); D64.9 Anemia, unspecified
CPT/HCPCS: 36415; 80053; 82607; 85025

== ENCOUNTER 2020-11-09 08:45 | Outpatient (CLI) | payer MEDICARE, OTHER | END 2020-11-09 08:46 | disposition home or self-care (01) | LOC: RT 08:45 | PROVIDERS: ATTEND Internal Medicine | DX: R06.02 Shortness of breath (principal) | CPT/HCPCS: 94010 ==

== ENCOUNTER 2021-03-01 08:00 | Outpatient (CLI) | payer MEDICARE, OTHER ==
[2021-03-01 17:49] LABS: BILIRUBIN,TOTAL 0.8 mg/dL (0.2-1.0); CALCIUM 9.5 mg/dL (8.5-10.3); CREATININE 1.1 mg/dL (0.6-1.2); POTASSIUM 4.3 mmol/L (3.5-5.0)
[2021-03-01 17:50] LABS: ALBUMIN 3.8 g/dL (3.2-5.5); TOTAL PROTEIN 7.5 g/dL (6.7-8.2)
[2021-03-01 17:59] LABS: RED BLOOD COUNT 3.48 10^6/uL (4.70-6.10); WHITE BLOOD COUNT 11.3 x10^3/uL (4.8-10.8)
[2021-03-01 18:00] LABS: BASOPHILS # (AUTO) 0.1 10^3/uL (0.0-0.1); BASOPHILS % (AUTO) 0.8 %; EOSINOPHILS # (AUTO) 0.4 10^3/uL (0.0-0.7); EOSINOPHILS % (AUTO) 3.2 %; LYMPHOCYTES # (AUTO) 2.5 10^3/uL (1.5-3.5); MEAN CORPUSCULAR HEMOGLOBIN 34.4 pg (27.0-31.0); MEAN CORPUSCULAR HGB CONC 33.3 g/dL (32.0-36.0); MEAN CORPUSCULAR VOLUME 103.2 fL (80.0-94.0); MEAN PLATELET VOLUME 11.4 fL (7.4-11.4); MONOCYTES # (AUTO) 1.4 10^3/uL (0.0-1.0); NEUTROPHILS # (AUTO) 6.9 10^3/uL (1.5-6.6); NEUTROPHILS % (AUTO) 61.5 %; PLT - PLATELET COUNT 274 10^3/uL (130-450); RED CELL DISTRIBUTION WIDTH 15.3 % (12.0-15.0)
== END 2021-03-01 23:59 ==
LOC: LAB.S 08:00
PROVIDERS: ATTEND Internal Medicine
DX: I10 Essential (primary) hypertension (principal); D64.9 Anemia, unspecified
CPT/HCPCS: 36415; 80053; 82728; 85025

== ENCOUNTER 2021-03-24 10:36 | Outpatient (CLI) | payer MEDICARE, OTHER ==
[2021-03-24] MEDS ORDERED: iohexoL-300 100 ML VIAL ONE (10:51)
[2021-03-24] MEDS: iohexoL-300 100 ML VIAL IVP ONE (11:29)
--- NOTE | 2021-03-24 14:21 | CT Report ---
PROCEDURE: ABDOMEN/PELVIS W/WO INDICATIONS: BLADDER CA CONTRAST: Omnipaque, 140 mL TECHNIQUE: Noncontrast 5 mm thick sections acquired from the diaphragms to the symphysis. 5 mm coronal and sagi ttal reformats were then performed. After the administration of oral and intravenous contrast, 5 mm thick sections acquired from the diaphragms to the symphysis. 5 mm thick coronal and sagittal reform ats were acquired. For radiation dose reduction, the following was used: automated exposure control , adjustment of mA and/or kV according to patient size. COMPARISON: CT abdomen and pelvis dated 09/04/2017, CT IVP dated 06/19/2017 FINDINGS: Image quality: Excellent. Lung bases: Progression of bibasilar pulmonary fibrosis, left greater than right, with prominent kathleen ycombing now present. There is a 8 mm pulmonary nodule in the basilar portion of the right lower lobe which appears to exist in a location which was included on the previous 2 studies, and therefore wou ld be a new pulmonary nodule, suspicious for possible metastatic disease. More inferiorly, in an area that wasn't definitely imaged on the prior studies, is a 11 mm right basilar pulmonary nodule, consi stent with metastatic disease. Urinary system: Both kidneys are normal in size, without hydronephrosis or nephrolithiasis on pre-co ntrast images. No perinephric fat stranding. There is normal bilateral renal enhancement. Renal ca lyces appear normal in morphology when filled with contrast. Opacified portions of both ureters demo nstrate normal caliber. Bladder wall thickness is normal. No calcified bladder stones. Enlarged pro state with TURP defect. Other solid organs: Liver and spleen are normal in size and enhancement. Gallbladder is unremarkable as visualized. Biliary system is non dilated. Pancreas enhances normally. No adrenal nodules. Peritoneum and bowel: Bowel loops demonstrate normal wall thickness and caliber. No free fluid or a ir. Sigmoid diverticulosis without evidence of diverticulitis. Nodes and vessels: No retroperitoneal or mesenteric adenopathy by size criteria. Very minimal interv al increase in size of an infrarenal abdominal aortic aneurysm, previously measuring 4.1 cm and curre ntly measuring 4.3 cm on image 42/4. Diffuse calcifications involving the aorta and iliacs and SMA an d right renal artery. Abdominal wall: No ventral hernias. Pelvis: No pathologic free pelvic fluid. No inguinal hernias or adenopathy. Bones: There is a vague sclerotic lesion involving the T9 vertebral body in the midline which was not present on the previous study from 06/19/2017, and likely represents a very subtle sclerotic bony met astatic lesion. Reference image 38/10. No vertebral body compression fractures. Total left hip arthr oplasty results in significant metal artifact in the pelvis. IMPRESSION: 1. Interval development of pulmonary metastatic disease. There are 2 focal right basilar pulmonary no dules which have developed. 2. Minimal progression of aneurysmal dilatation of the infrarenal aorta, now measuring 4.3 cm. 3. Findings suspicious for a very subtle mildly sclerotic T9 metastatic lesion. 4. Prostatomegaly. No obvious bladder lesion. Artifact from a total left hip arthroplasty limits visu alization of pelvic structures. Reviewed by: Rafael Almanza MD on 03/24/2021 2:19 PM PST Approved by: Rafael Almanza MD on 03/24/2021 2:19 PM PST Station ID: [id number]
== END 2021-03-24 10:37 | disposition home or self-care (01) ==
LOC: DI 10:36
PROVIDERS: ATTEND Internal Medicine
DX: C67.9 Malignant neoplasm of bladder, unspecified (principal); C78.01 Secondary malignant neoplasm of right lung; R93.7 Abnormal findings on diagnostic imaging of other parts of musculoskeletal system; I71.4 Abdominal aortic aneurysm, without rupture; N40.0 Benign prostatic hyperplasia without lower urinary tract symptoms
CPT/HCPCS: 74178; Q9967